=== PATIENT | female | born 1955 | race Caucasian/White ===

== ENCOUNTER 2016-10-22 09:32 | Day surgery (SDC) | payer OTHER ==
[~2016-10-22] VITALS: Ht 157.5 cm; Wt 86.6 kg
[2016-10-22] MEDS ORDERED: AMLODIPINE BESYLATE (10:56)
[2016-10-22] MEDS ORDERED: ATENOLOL (10:56)
[2016-10-22] MEDS ORDERED: AMITRIPTYLINE (10:56)
[2016-10-22] MEDS ORDERED: VITAMIN D2 (10:56)
[2016-10-22] MEDS ORDERED: ASPIRIN (10:56)
[2016-10-22] MEDS ORDERED: DULOXETINE HCL (10:56)
[2016-10-22] MEDS ORDERED: CHLORTHALIDONE (10:56)
[2016-10-22] MEDS ORDERED: PRENATAL VITAMINS (10:56)
[2016-10-22] MEDS ORDERED: DONEPEZIL (10:56)
[2016-10-22] MEDS ORDERED: ATORVASTATIN (10:56)
[2016-10-22] MEDS ORDERED: CLONAZEPAM (10:56)
[2016-10-22 10:58] VITALS: Ht 157.5 cm; Wt 86.6 kg
[2016-10-22 11:20] VITALS: BP 115/69; PULSE 62; RESP 18
[2016-10-22] MEDS ORDERED: PROPOFOL 20 ML ONE (11:36)
[2016-10-22] MEDS ORDERED: MIDAZOLAM 1 MG/ML 2 ML INJ ONE ×2 (11:36)
[2016-10-22] MEDS ORDERED: FENTAnyl 50 MCG/ML VIAL ONE (11:36)
[2016-10-22 12:40] VITALS: BP 104/66; PULSE 60; RESP 18
--- NOTE | 2016-10-22 13:20 | GILP ---
DATE OF PROCEDURE: 10/22/2016 NAME OF PROCEDURES: Colonoscopy and biopsy. SURGEON: Michelle Thrasher MD PREOPERATIVE DIAGNOSIS: Screening colonoscopy. POSTOPERATIVE DIAGNOSES: 1. Poor prep with solid stool preventing complete colonoscopy and making the exam very inadequate. 2. Small sigmoid colon polyp was removed using the biopsy forceps. 3. Internal hemorrhoids. INDICATION FOR THE PROCEDURE: Ms. Oumou Villanueva is a 61-year-old female patient who had family hi story of colon cancer. She also had history of colon polyps. The patient was scheduled for screeni ng colonoscopy. The procedure and possible complications were well explained to the patient, she understood and cons ented to the procedure. DESCRIPTION OF PROCEDURE: Under the influence of anesthesia, the colonoscope was carefully introduc ed in the rectum and it was advanced to the proximal part of the colon. FINDINGS: The patient had poor prep with solid stool making the exam incomplete and very inadequate , The patient had a small sigmoid colon polyp and it was removed using the biopsy forceps. She was noted to have internal hemorrhoids. She tolerated the procedure very well and there was no complication from the procedure. At the end of the procedure, she was awake with stable vital signs and she was discharged home to the care of h er family. IMPRESSION: 1. Poor prep with solid stool making the exam incomplete and very inadequate. 2. Small sigmoid colon polyp was removed using the biopsy forceps. 3. Internal hemorrhoids. PLAN: The patient will need repeat colonoscopy with better preparation. Dictated By: MICHELLE THRASHER MD GD/NTS Conf#: [id number] DID#: [id number] CC: MICHELLE THRASHER MD;*End*
== END 2016-10-22 14:20 | disposition home or self-care (01) ==
LOC: GIL 09:32
PROVIDERS: ATTEND Internal Medicine Gastroenterology
DX: Z12.11 Encounter for screening for malignant neoplasm of colon (principal); D12.5 Benign neoplasm of sigmoid colon; K64.8 Other hemorrhoids; I12.9 Hypertensive chronic kidney disease with stage 1 through stage 4 chronic kidney disease, or unspecified chronic kidney disease; N18.9 Chronic kidney disease, unspecified
CPT/HCPCS: 45380; 88305; J2250; J3010; Z7610

== ENCOUNTER 2017-01-28 07:06 | Day surgery (SDC) | payer OTHER ==
[~2017-01-28] VITALS: Ht 157.5 cm; Wt 88.7 kg
[~2017-01-28 07:06] MED LIST: AMITRIPTYLINE; AMLODIPINE BESYLATE; ASPIRIN; ATENOLOL; ATORVASTATIN; CHLORTHALIDONE; CLONAZEPAM; DONEPEZIL; DULOXETINE HCL; PRENATAL VITAMINS; VITAMIN D2
[2017-01-28 08:21] VITALS: Ht 157.5 cm; Wt 88.7 kg
[2017-01-28 09:11] VITALS: BP 113/72; PULSE 65; RESP 18
[2017-01-28] MEDS ORDERED: PROPOFOL 60 ML ONE (09:47)
--- NOTE | 2017-02-21 12:38 | GILP ---
DATE OF PROCEDURE: 10/22/2016 SURGEON: Jack Osuna MD. PROCEDURE PERFORMED: Colonoscopy. PREOP DIAGNOSES: 1. History of colon polyps. 2. Screening colonoscopy. POSTOP DIAGNOSES: 1. Colonoscopy all the way to the cecum. 2. Poor prep, making the exam suboptimal. 3. Internal hemorrhoids. 4. No gross neoplasm was identified. INDICATION: The patient is a 61-year-old female, who has a history of colon polyps. Patient needed a screening colonoscopy. The procedure and possible complications were well-explained to the patient. She understood and consented to the procedure. DESCRIPTION OF PROCEDURE: Under influence of anesthesia, the colonoscope was carefully introduced in the rectum, and under direct vision it was advanced all the way to the cecum. Findings: The patient had poor prep, making the exam suboptimal. Patient was noted to have internal hemorrhoids. No gross neoplasm was identified. She tolerated the procedure very well. There was no complications from the procedure. At the end of procedure she was awake, with stable vital signs and was discharged home to the care of her family. IMPRESSION: 1. Colonoscopy evaluated this to some extent. 2. Poor preparation making exam suboptimal. 3. Internal hemorrhoids. 4. No gross neoplasm was identified. PLAN: Because of the poor prep and suboptimal nature of the examination, would recommend next screening colonoscopy in 1 year. Dictated By: MD JOAN Ashford/alejandro/darleen /Document#: [id number] CC: Jack Osuna MD;*End*
== END 2017-01-28 11:48 | disposition home or self-care (01) ==
LOC: GIL 07:06
PROVIDERS: ATTEND Internal Medicine Gastroenterology
DX: Z12.11 Encounter for screening for malignant neoplasm of colon (principal); K64.8 Other hemorrhoids; Z86.010 Personal history of colon polyps; I12.9 Hypertensive chronic kidney disease with stage 1 through stage 4 chronic kidney disease, or unspecified chronic kidney disease; N18.9 Chronic kidney disease, unspecified; F41.9 Anxiety disorder, unspecified; E66.9 Obesity, unspecified; Z68.35 Body mass index [BMI] 35.0-35.9, adult
CPT/HCPCS: 45378; Z7610